=== PATIENT | male | born 1995 | race Two or more races ===

== ENCOUNTER 2018-11-11 16:38 | Emergency (ER) | payer MEDICAID ==
[2018-11-11 17:34] VITALS: BP 116/68
--- NOTE | 2018-11-11 18:18 | ED Physician Chart ---
ED Chief Complaint/HPI - Patient Information Date Seen:: 11/11/18 Time Seen:: 17:00 Chief Complaint:: muffled ear sounds withe bilateral shoulder discomfort Allergies:: Allergies Allergy/AdvReac Type Severity Reaction Status Date / Time No Known Allergies Allergy Verified 11/11/18 17:27 Vitals:: Vital Signs - 8 hr 11/11/18 11/11/18 11/11/18 16:42 17:24 17:27 Temp 98.9 F 98.9 F HR 67 67 RR 18 18 BP 116/68 116/68 116/68 O2 Sat % 98 98 Historian:: Patient Review:: Nurse's Note Reviewed ED Review of Systems - Review of Systems General/Constitutional: No fever Skin: No skin lesions Head: No headache Eyes: No loss of vision ENT: Earache Neck: Neck pain Cardio Vascular: No chest pain Pulmonary: No SOB GI: No nausea, No vomiting G/U: No dysuria Musculoskeletal: Bone or joint pain Psychiatric: No prior psych history Hematopoietic: No bruising Allergic/Immuno: No urticaria Neurological: No syncope ED Past Medical History - Past Medical History Past Medical History: No significant medical hx Social History: No Drug Use Surgical History: None Family Medical History - Family Member Mother History Unknown: Yes Ethnicity: Living Status: Still Living ED Physical Exam - Physical Examination General/Constitutional: Well-developed, well-nourished, Alert, No distress Head: Atraumatic Eyes: Lids, conjuctiva normal Skin: Nl inspection Other ENMT comments:: ltm injected 2/5 Neck: Full ROM w/o pain, No JVD, No nuchal rigidity Respiratory: Clear to Auscultation Cardio Vascular: RRR GI: No tenderness/rebounding/guarding : No CVA tenderness Extremities: Full ROM Neuro/Psych: Alert/oriented, Normal sensory exam, Normal motor strength, Normal gait Misc: Normal back ED Septic Shock - . Is Septic Shock (SBP<90, OR Lactate>4 mmol\L) present?: No - <6hrs of presentation: Vital Signs: Vital Signs - 8 hr 11/11/18 11/11/18 11/11/18 16:42 17:24 17:27 Temp 98.9 F 98.9 F HR 67 67 RR 18 18 BP 116/68 116/68 116/68 O2 Sat % 98 98 ED Reassessment (Disposition) - Reassessment Reassessment Condition:: Unchanged - Diagnosis Diagnosis:: sub acute otitis media Amoxicillin 500 tid 10 days stop diarreha
== END 2018-11-11 17:35 | disposition home or self-care (01) ==
LOC: ER 16:38
DX: H66.92 Otitis media, unspecified, left ear (principal); M25.512 Pain in left shoulder; M25.511 Pain in right shoulder
CPT/HCPCS: Z7502